=== PATIENT | female | born 2005 | race Caucasian/White ===

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

== ENCOUNTER 2023-02-02 06:32 | Emergency (ER) | payer OTHER ==
--- OUTSIDE RECORDS SUMMARY | 2023-02-02 06:36 | XMS REPORT | Continuity of Care Document ---
:2005 Author Organization [facility] t Address [address] [facility]. [address] [place] [address] Care Team Providers Name Role Phone LISSY FROST Primary Care Physician Unavailable MARY JANE HARDING Attending Clinician Unavailable PURVI BOB Attending Clinician Unavailable Purvi Baker Attending Clinician Doctor Unassigned, [place] Attending Clinician Unavailable Lissy Gibson Attending Clinician [phone] LISSY FROST Attending Clinician Unavailable Gris Al Attending Clinician Lab, Adc Fam Pob I Attending Clinician Unavailable Tae Reza Attending Clinician TAE KOVACS Attending Clinician Unavailable Visit, Ang-Rmp Nurse Attending Clinician Unavailable Payers Payer Name Policy Type Policy Number Effective Date Expiration Date S stoney AET[employer] 2 [id number] 2023 00:00:00 [employer] - [id number] 2020 2022 00:00:0 0 OUT OF STATE 00:00:00 [employer]ET[employer] CHOICE [id number] 2020 POS II 00:00:00 Problems Condition Condition Condition Status Onset Resolution Last Treating Co mments Source Name Details Category Date Date Treatment Clinician Date Nexplanon Nexplanon Disease Active Uni vers in place in place 03-27 ity of 00:00: [address] Vaginal Vaginal Disease Active Univers odor odor 5-04 ity of 00:00: [address] Irregular Irregular Disease Active Uni vers menstrual menstrual 3-24 ity of cycle cycle 00:00: [address] Overweight Overweight Disease Active U nivers (BMI (BMI 3-24 ity of 25.0-29.9) 25.0-29.9) 00:00: [address] Branch Encounter Encounter Disease Active Uni vers for for 1-30 ity of surveillan surveillan 00:00: xas ce of ce of Medical implantabl implantabl Br anch e e subdermal subdermal contracept contracept chris chris Allergies, Adverse Reactions, Alerts Allergy Allergy Status Severity Reaction(s) Onset Inactive Treating Comm ents Source Name Type Date Date Clinician NO KNOWN Drug Active Univers ALLERGIE Class ity of S [facility] Social History Social Habit Start Date Stop Date Quantity Comments Source Exposure to 2022-03-17 2022-03-27 Not sure Formerly [facility]-CoV-2 00:00:00 08:00:00 [facility] (event) Branch Alcohol intake 2022-03-27 2022-03-27 Current [facility] 00:00:00 00:00:00 non-drinker of [facility] alcohol Branch (finding) Tobacco use and 2018-09-11 2018-09-11 Never used Universit y of exposure 00:00:00 00:00:00 [facility] Sex Assigned At [birth year] Universit y of 00:00:00 00:00:00 [facility] Smoking Status Start Date Stop Date Source Never smoker [facility] Medications Ordered Filled Start Stop Current Ordering Indication Dosage Frequency Signature Comments Components Source Medication Medication Date Date Medication? Clinician (SIG) Name Name metroNIDAZO 2021- No [id number] 500mg Take 1 Univers LE 500 mg 03-29 tablet by ity of tablet 00:00: 04:59 mouth 2 [place] 00 :00 (two) Medical times [place] daily for 7 days. Immunizations Ordered Immunization Filled Immunization Date Status Commen ts Source Name Name HPV9 2019-12-23 Completed University 00:00:00 [facility] HPV 2019-02-22 Completed University of 00:00:00 [facility] HPV9 2019-02-22 Completed University of 00:00:00 [facility] HPV9 2018-12-23 Completed University of 00:00:00 [facility] HPV 2018-12-23 Completed University of 00:00:00 [facility] Meningococcal 2015-06-26 Completed University of Vaccine 00:00:00 [facility] TDAP 2015-06-26 Completed University of 00:00:00 [facility] DTAP 2008-02-23 Completed University of 00:00:00 [facility] HEPATITIS A 2008-02-23 Completed University of 00:00:00 [facility] MMR 2008-02-23 Completed University of 00:00:00 [facility] Polio (IPV/OPV) 2008-02-23 Completed Universit y of 00:00:00 [facility] Varicella 2008-02-23 Completed University of (varivax)(chicken 00:00:00 [place] M edical pox) Branch HEPATITIS A 2005-11-20 Completed University of 00:00:00 [facility] Varicella 2005-11-20 Completed University of (varivax)(chicken 00:00:00 [place] M edical pox) Branch DTAP 2004-11-27 Completed University of 00:00:00 [facility] HIB 4 Dose Schedule 2004-11-27 Completed Unive rsity of 00:00:00 [facility] Influenza Virus 2004-11-27 Completed Universit y of Vaccine 00:00:00 [facility] MMR 2004-11-27 Completed University of 00:00:00 [facility] Pneumococcal 13 2004-11-27 Completed Universit y of Conjugate, PCV13 00:00:00 [facility] dical (Prevnar 13) Branch Polio (IPV/OPV) 2004-11-27 Completed Universit y of 00:00:00 [facility] DTAP 2004-04-16 Completed University of 00:00:00 [facility] HIB 4 Dose Schedule 2004-04-16 Completed Unive rsity of 00:00:00 [facility] Hep B, Adol or Pedi 2004-04-16 Completed Unive rsity of Dosage 00:00:00 [facility] Pneumococcal 13 2004-04-16 Completed Universit y of Conjugate, PCV13 00:00:00 [place] Me dical (Prevnar 13) Branch DTAP 2004-02-10 Completed University of 00:00:00 [facility] HIB 4 Dose Schedule 2004-02-10 Completed Unive rsity of 00:00:00 [facility] Pneumococcal 7 2004-02-10 Completed University of Conjugate, PCV7 00:00:00 [place] Med ical (Prevnar7) Branch Polio (IPV/OPV) 2004-02-10 Completed Universit y of 00:00:00 [facility] Pneumococcal 13 2004-02-10 Completed Universit y of Conjugate, PCV13 00:00:00 [place] Me dical (Prevnar 13) Branch DTAP 2003 Completed University of 00:00:00 [facility] HIB 4 Dose Schedule 2003 Completed Unive rsity of 00:00:00 [facility] Hep B, Adol or Pedi 2003 Completed Unive rsity of Dosage 00:00:00 [facility] Polio (IPV/OPV) 2003 Completed Universit y of 00:00:00 [facility] Hep B, Adol or Pedi 2003 Completed Unive rsity of Dosage 00:00:00 [facility] Procedures This patient has no known procedures. Encounters Start End Encounter Admission Attending Care Care Encounter Source Date/Time Date/Time Type Type Clinicians Facility Department ID 2023-01-23 2023-01-23 Outpatient JACQUE HARDING [id number] Jacque 00:00:00 00:00:00 MARY JANE cannon 2022-09-04 2022-09-04 Outpatient Theodore BOB [facility] [id number] Univers 09:45:00 09:45:00 PURVI martinez [facility] 2022-03-29 2022-03-29 Telephone Lisbeth [facility] [id number] [facility] 00:00:00 00:00:00 Purvi Jaimes [employer] [id number] ity [facility] [id number] Parveen as MATERNAL [phone] Med ical & CHILD [address] [place] [address] 2022-03-27 2022-03-27 Outpatient R LISBETH [facility] [id number] Univers 07:45:00 08:26:51 PURVI staley o michelle [facility] 2022-03-27 2022-03-27 [facility] [id number] Univers 07:45:00 08:26:51 Visit Purvi Jaimes [employer] [id number] [facility] [id number] Parveen as MATERNAL [phone] [facility] [address] [place] [address] 2022-03-27 2022-03-27 Outpatient [address] [facility] [id number] Univers 07:45:00 08:26:51 PURVI staley o f [facility] 2022-03-27 2022-03-27 Orders Doctor SOL[place] [id number] Univers 00:00:00 00:00:00 Only Unassigned, NICOLE 350.1.13.10 ity of [place] [facility] 4.2.7.2.686 Parveen as [phone] [address] 2022-03-27 2022-03-27 [facility] [id number] Univers 00:00:00 00:00:00 (Out) Purvi Jaimes [employer] [id number] [facility] 4.2.7.2.686 Parveen as MATERNAL [phone] [facility] & [address] 2021-12-13 2021-12-13 Outpatient [address] [facility] [id number] Univers 08:45:00 08:45:00 PURVI staley o [facility] 2021-09-12 2021-09-12 Telephone [facility] [id number] Univers 00:00:00 00:00:00 Lissy C [employer] [id number] [facility] 4.2.7.2.686 Parveen as MATERNAL [phone] [facility] & [address] 2021-07-10 2021-07-10 Outpatient Theodore [facility] [id number] Univers 17:30:00 17:30:00 PURVI staley o michelle [facility] 2021-07-06 2021-07-06 Telephone [facility] [id number] Univers 00:00:00 00:00:00 Lissy C [employer] [id number] ity of REGIONAL 4.2.7.2.686 Parveen as MATERNAL [phone] [facility] & [address] 2021-06-29 2021-06-29 Telephone [facility] 1.2.840.114 [id number] Univers 00:00:00 00:00:00 Lissy C [employer] [id number] ity of REGIONAL 4.2.7.2.686 Parveen as MATERNAL [id number] [address] 2021-04-19 2021-04-19 Outpatient R [facility] [id number] Univers 13:15:00 13:15:00 ity of [facility] 2021-04-05 2021-04-05 Telephone [facility] [id number] Univers 00:00:00 00:00:00 Purvi R [employer] 350.1.13.10 ity of REGIONAL 4.2.7.2.686 Parveen as MATERNAL [id number] [address] 2021-04-04 2021-04-04 Outpatient R [facility] [id number] Univers 15:45:00 15:45:00 LISSY ity o f [facility] 2021-03-09 2021-03-09 Orders Doctor JEREZ 1.2.840.114 [id number] Univers 00:00:00 00:00:00 Only Unassigned, NICOLE 350.1.13.10 ity of [place] [facility] 4.2.7.2.686 Parveen as [id number] [address] 2021-03-09 2021-03-09 Orders Doctor JEREZ 1.2.840.114 [id number] 00:00:00 00:00:00 Only Unassigned, NICOLE 350.1.13.10 [place] [facility] 4.2.7.2.686 [id number] [facility] 2021-02-28 2021-02-28 Office [facility] 1.2.840.114 [id number] Univers 08:17:07 09:05:09 Visit Aranzanda R [employer] 350.1.13.10 ity of REGIONAL 4.2.7.2.686 Parveen as MATERNAL [phone] [facility] ical & CHILD [address] [place] [address] 2021-02-28 2021-02-28 Office [facility] 1.2.840.114 [id number] 08:17:07 09:05:09 Visit Aranzanda R [employer] 350.1.13.10 REGIONAL 4.2.7.2.686 MATERNAL [id number] & CHILD [address] [place] [address] 2021-02-28 2021-02-28 Outpatient [facility] [id number] Univers 08:15:00 08:15:00 PURVI singleton [facility] 2021-02-28 2021-02-28 Orders Doctor SOLITARIO 1.2.840.114 [id number] Univers 00:00:00 00:00:00 Only Unassigned, NICOLE 350.1.13.10 ity of [place] [facility] 4.2.7.2.686 Parveen as [id number] [address] 2021-02-28 2021-02-28 Orders Doctor SOLITARIO 1.2.840.114 [id number] 00:00:00 00:00:00 Only Unassigned, NICOLE 350.1.13.10 [place] [facility] 4.2.7.2.686 [id number] [facility] 2021-02-14 2021-02-14 Office [facility] 1.2.840.114 [id number] Univers 14:34:45 15:51:36 Visit Aranzanda R [employer] 350.1.13.10 ity of REGIONAL 4.2.7.2.686 Parveen as MATERNAL [phone] [facility] ical & CHILD [address] [place] [address] 2021-02-14 2021-02-14 Outpatient Theodore [facility] [id number] Univers 14:15:00 14:15:00 PURVI martinez [facility] 2021-02-14 2021-02-14 Orders Doctor SOLITARIO Quintana.2.840.114 [id number] Univers 00:00:00 00:00:00 Only Unassigned, NICOLE 350.1.13.10 ity of [place] [address]686 Parveen as [phone] [address] 2021-01-25 2021-01-25 Telephone [facility] 1.2.840.114 [id number] Univers 00:00:00 00:00:00 Lissy C [employer] 350.1.13.10 ity of [address]686 Parveen as MATERNAL [phone] [facility] & CHILD [address] [place] [address] 2020-08-30 2020-08-30 Office [facility] [id number] Univers 08:07:36 08:46:48 Visit Lissy C [employer] 350.1.13.10 ity of [place] [id number] Parveen as MATERNAL [phone] [facility] & CHILD [address] [place] [address] 2020-08-30 2020-08-30 Outpatient R AKINSIPE, [facility] [id number] Univers 08:15:00 08:15:00 LISSY ity o f [facility] 2020-08-23 2020-08-23 Outpatient R AKINSIPE, [facility] [id number] Univers 09:45:00 09:45:00 LISSY ity o f [facility] 2020-08-23 2020-08-23 Outpatient R AKINSIPE, [facility] [id number] Univers 09:45:00 09:45:00 LISSY ity o [facility] 2020-07-09 2020-07-09 Refill [facility] [id number] Univers 00:00:00 00:00:00 Lissy C [employer] 350.1.13.10 ity of [place] [id number] Parveen as MATERNAL [phone] [facility] & [facility] [address] [place] [address] 2020-06-26 2020-06-26 Orders Doctor JEREZ 1.2.840.114 [id number] Univers 00:00:00 00:00:00 Only Unassigned, NICOLE 350.1.13.10 ity of [place] [facility] 4.2.7.2.686 Parveen as [id number] [address] 2020-06-25 2020-06-25 [facility]phone [facility] [id number] Univers 00:00:00 00:00:00 Gris [facility] 350.1.13.10 it y of [place] 4.2.7.2.686 Parveen as Professio [phone] Il dical nal [address] [place] [address] Office Building One 2020-06-24 2020-06-24 Laboratory Lab, Adc Fam Pob I [facility] 1.2. [id number] Univers 13:51:37 14:11:37 Only Ebrahim, Tae [facility] 350.1.13.10 ity of [place] 4.2.7.2.686 Parveen as Professio [phone] Il dical nal [address] [place] [address] Office [facility] 2020-06-24 2020-06-24 Outpatient R EBLISSETTEM, [facility] [id number] Univers 14:00:00 14:00:00 RANIA ity [facility] 2020-06-07 2020-06-07 Outpatient R [facility] [id number] Univers 13:30:00 13:30:00 ity [facility] 2020-05-23 2020-05-30 Office [facility] [id number] Univers 08:24:40 16:10:49 Visit Lissy Rick [employer] 350.1.13.10 ity [facility] 4.2.7.2.686 Parveen as MATERNAL [id number] Med ical & CHILD [address] [place] [address] 2020-05-23 2020-05-23 Outpatient R MARGOT, [facility] [id number] Univers 08:15:00 08:15:00 LISSY martinez [facility] 2020-05-23 2020-05-23 Outpatient R AKINWILLIAM, [facility] [id number] Univers 08:15:00 08:15:00 LISSY martinez [facility] 2020-05-03 2020-05-03 Telephone [facility] 1.2.840.114 [id number] Univers 00:00:00 00:00:00 Lissy C [employer] 350.1.13.[address] [facility] 4.2.7.2.686 Parveen as MATERNAL [id number] [facility] & CHILD [address] [place] [address] 2020-03-16 2020-03-16 Outpatient R [facility] [id number] Univers 16:00:00 16:00:00 ity of [facility] 2020-03-15 2020-03-15 Nurse Visit, Lai Nurse [facility] 1.2 .840.114 [id number] Univers 13:31:32 16:14:24 Visit Lissy Frost [employer] 350.1.13. [address] [facility] 4.2.7.2.686 Parveen as MATERNAL [id number] [facility] & [address] 2020-03-15 2020-03-15 Outpatient R [facility] [id number] Univers 13:30:00 13:30:00 ity of [facility] 2020-01-03 2020-01-03 Telephone Margot [facility] 1.2.840.114 [id number] Univers 00:00:00 00:00:00 Lissy Prabhjot [employer] 350.1.13.[address] [facility] 4.2.7.2.686 Parveen as MATERNAL [phone] [address] 2019-12-08 2019-12-08 Nurse Visit, Lai Nurse [facility] 1.2 .840.114 [id number] Univers 08:30:13 08:59:06 Visit Lissy Frost [employer] 350.1.13. [address] [facility] 4.2.7.2.686 Parveen as MATERNAL [phone] [facility] & CHILD [address] [place] [address] 2019-12-08 2019-12-08 Orders Doctor JEREZ 1.2.840.114 [id number] Univers 00:00:00 00:00:00 Only Unassigned, NICOLE 350.1.13.10 ity of [place] [facility] 4.2.7.2.686 Parveen as [phone] [address] 2019-08-02 2019-08-03 Nurse Visit, Ang-Rmchp Nurse [facility] 1.2 .840.114 [id number] [facility] 16:19:35 16:01:32 Visit Lissy Frost [employer] [facility].13. [facility].7.2.686 Parveen as MATERNAL [phone] Med ical & CHILD [facility] Results This patient has no known results.
[2023-02-02] MEDS ORDERED: NA CHLORIDE 0.9% 1,000 ML ONE (07:23)
[2023-02-02] MEDS ORDERED: ONDANSETRON 4 MG/2 ML VIAL ONE (07:23)
[2023-02-02 07:40] LABS: Hematocrit 44.1 % (36.0-45.0); Lymphocytes % 22.6 % (15.3-44.8); MCV 83.5 fL (80-100); MPV 8.6 fL (7.6-11.3); RBC Red Blood Cell Count 5.28 M/uL (3.86-4.86)
[2023-02-02] MEDS ORDERED: ACETAMINOPHEN 500 MG TAB ONE (07:47)
[2023-02-02 07:58] LABS: Albumin 3.8 g/dL (3.4-5.0); Bilirubin Total 0.5 mg/dL (0.2-1.0); Potassium 3.6 mmol/L (3.5-5.1); Protein, Total 7.4 g/dL (6.4-8.2)
[2023-02-02 08:54] LABS: Urine Blood Negative (Negative); Urine Glucose Negative (Negative); Urine Protein Negative (Negative); Urine Specific Gravity 1.025 (1.005-1.030)
[2023-02-02 09:03] LABS: Urine Bacteria 20-50 /HPF (<20); Urine Mucus Slight /HPF (None Seen); Urine RBC <5 /HPF (None Seen)
--- NOTE | 2023-02-02 09:40 | RAD REPORT ---
EXAM DESCRIPTION: US - Transvaginal Study Probe - 02/02/2023 8:40 am CLINICAL HISTORY: ABD PAIN COMPARISON: Transvaginal Study Probe dated 04/04/2021 FINDINGS: A single gestational sac is seen within the uterus. The shape of the sac is within normal limits for gestational age. Within the sac is a single pole with crown-rump length of 2 mm, cor relating to estimated gestational age of 6 weeks 0 days. Estimated date of delivery is 09/28/2023. Heart rate is 117 BPM. The placenta is not yet developed due to early gestational age. The maternal adnexa and ovaries are within normal limits. Normal Doppler blood flow was demonstrated to both ovaries. IMPRESSION: Single live early intrauterine gestation with estimated gestational age of 6 weeks 0 day s, MABEL 09/28/2023. No unusual or unexpected finding.
[2023-02-02 11:01] VITALS: TEMP 98.4
[2023-02-02 11:02] VITALS: O2SAT 99
[2023-02-02 11:03] VITALS: BP 97/65
--- NOTE | 2023-02-14 17:19 | ER ---
Nurse's Notes [facility] Name: Mat Mendez Age: 17 yrs Sex: Female : 2005 Arrival Date: 02/02/2023 Time: 06:39 Bed 6 Private MD: Diagnosis: UTI/ Urinary tract infection, site not specified Presentation: 02/02 07:19 Chief complaint: Patient states: she is having lower abdominal pain that radiates to [facility] lower back for about 2 weeks. She was diagnosed with a UTI 2 wks ago, given abx, pain went away for 3 days but it is back. Pt is "6 weeks ". . Coronavirus screen: Vaccine status: Patient reports being unvaccinated. Ebola Screen: No symptoms or risks identified at this time. Initial Sepsis Screen: Does the patient meet any 2 criteria? No. Patient's initial sepsis screen is negative. Does the patient have a suspected source of infection? No. Patient's initial sepsis screen is negative. Risk Assessment: Do you want to hurt yourself or someone else? Patient reports no desire to harm self or others. Onset of symptoms was January 2023. Transition of care: patient was not received from another setting of care. 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 - Social history:: Smoking status: Patient denies any tobacco usage or history of. Screenin:20 [facility] ED Fall Risk Assessment (Adult) History of falling in the last 3 months, [facility] including since admission No falls in past 3 months (0 pts) Confusion or Disorientation No (0 pts) Intoxicated or Sedated No (0 pts) Impaired Gait No (0 pts) Mobility Assist Device Used No (0 pt) Altered Elimination No (0 pt) Score/Fall Risk Level 0 - 2 = Low Risk. Abuse screen: Denies threats or abuse. Denies injuries from another. Nutritional screening: No deficits noted. Tuberculosis screening: No symptoms or risk factors identified. Assessment: 07:20 General: Appears in no apparent distress. comfortable, Behavior is calm, cooperative, nj1 appropriate for age. Pain: Complains of pain in Lower abdominal Pain radiates to Lower back Pain currently is 2 out of 10 on a pain scale. Quality of pain is described as crampy, Pain began 2 weeeks ago. Neuro: No deficits noted. Level of Consciousness is awake, alert, obeys commands, Oriented to person, place, time, situation. Cardiovascular: No deficits noted. Patient's skin is warm and dry. Respiratory: No deficits noted. Airway is patent Respiratory effort is even, unlabored, Respiratory pattern is regular. GI: Reports lower abdominal pain, nausea. 08:16 Reassessment: US tech at bedside. Monitoring continues. nj1 08:45 Reassessment: Patient appears in no apparent distress at this time. Patient and/or nj1 family updated on plan of care and expected duration. Pain level reassessed. Patient is alert, oriented x 3, equal unlabored respirations, skin warm/dry/pink. Patient states symptoms have improved. Denies nausea.. 09:40 Reassessment: Patient appears in no apparent distress at this time. Appears to be nj1 sleeping. No needs voiced at this time. Significant other at bedside.. Vital Signs: 07:19 BP 107 / 74; Pulse 81; Resp 18; Temp 98.4(O); Pulse Ox 100% on R/A; Weight 72.57 kg; nj1 Height 5 ft. 5 in. ; Pain 2/10; 08:45 BP 97 / 67; Pulse 81; Resp 18; Pulse Ox 99% ; ko1 08:45 Pain 2/10; nj1 09:28 BP 97 / 65; Pulse 65; Resp 18; Pulse Ox 99% on R/A; ld1 07:19 Body Mass Index 26.63 (72.57 kg, 165.1 cm) nj1 07:19 Pain Scale: Adult nj1 08:45 Pain Scale: Adult nj1 ED Course: 06:39 Patient arrived in ED. ja2 06:51 Tom Priest MD is Attending Physician. edison 07:01 Attending Physician role handed off by Tom Priest MD rt 07:01 Alfredo Parrish MD is Attending Physician. rt 07:15 Dora Watson, RN is Primary Nurse. ko1 07:19 Arm band placed on. nj1 07:19 Bed in low position. Call light in reach. Pt declined warm blanket. nj1 07:35 Inserted saline lock: 22 gauge in right forearm, using aseptic technique. nj1 07:41 Triage completed. nj1 07:41 CBC with Diff Sent. ko1 07:41 CMP Sent. ko1 07:41 Lipase Sent. ko1 08:42 Transvaginal Study Probe In Process Unspecified. EDMS 08:46 Urine Microscopic Only Sent. ko1 10:28 No provider procedures requiring assistance completed. IV discontinued, intact, ko1 bleeding controlled, No redness/swelling at site. Pressure dressing applied. Administered Medications: 07:40 Drug: NS 0.9% IV 1000 ml Route: IV; Rate: 1 bolus; Site: right forearm; ko1 07:41 Drug: Ondansetron IVP 4 mg Route: IVP; Site: right forearm; ko1 07:44 Drug: Acetaminophen PO 1000 mg Route: PO; ko1 Medication: 10:28 VIS not applicable for this client. ko1 Outcome: 10:02 Discharge ordered by . rt 10:28 Discharged to home ambulatory, with family. ko1 10:28 Condition: stable 10:28 Discharge instructions given to patient, family, Instructed on discharge instructions, follow up and referral plans. medication usage, Demonstrated understanding of instructions, follow-up care, medications, Prescriptions given X 1. 10:35 Patient left the ED. ko1 Signatures: Dispatcher [employer] [facility] Tom Priest MD MD cha Dibbern, Lauren, RN RN ld1 eNha Brito Dora Watson, RN RN ko1 Alfredo Parrish MD MD rt Seema Hussein RN RN nj1 Corrections: (The following items were deleted from the chart) 08:13 07:19 PMHx: scoliosis; nj1 nj1
--- NOTE | 2023-02-14 17:19 | EDPHYS ---
Physician Documentation [facility] Name: Mat Mendez Age: 17 yrs Sex: Female : 2005 Arrival Date: 02/02/2023 Time: 06:39 Bed 6 Private MD: ED Physician Alfredo Parrish HPI: 02/02 07:33 This 17 yrs old Female presents to ER via Unassigned with complaints of rt Abdominal Pain, Low Back Pain. 07:33 Patient was reportedly 6 weeks presents to the ED with about 2 weeks of an rt intermittent lower abdominal pain which she states radiates to the lower back. Patient states that she was recently treated for a UTI and told that she had a cyst. Patient finished a course of cephalexin. States that the pain initially improved but worsened today. Reports nausea. Denies other acute complaints at this time. Symptoms are moderate in severity, no other aggravating alleviating factors.. USED [employer]: 07:19 1, LMP 12/17/2022, Verified, EDC 09/23/2023, Gestational age from LMP: nj1 6 weeks 5 days Historical: - Allergies: 07:19 No Known Allergies; nj1 - Home Meds: 07:19 None [Active]; nj1 - Immunization history:: Client reports having NOT received the Covid vaccine. - Social history:: Smoking status: Patient denies any tobacco usage or history of. ROS: 07:34 Constitutional: Negative for fever, chills, and weight loss, Cardiovascular: Negative rt for chest pain, palpitations, and edema, MS/Extremity: Negative for injury and deformity, Skin: Negative for injury, rash, and discoloration, Neuro: Negative for headache, weakness, numbness, tingling, and seizure, Psych: Negative for depression, anxiety, suicide ideation, homicidal ideation, and hallucinations. 07:34 Abdomen/GI: Positive for abdominal pain, nausea, Negative for vomiting. 07:34 Back: Positive for pain at rest, Negative for injury or acute deformity. Exam: 07:34 Constitutional: This is a well developed, well nourished patient who is awake, alert, rt and in no acute distress. Head/Face: Normocephalic, atraumatic. Chest/axilla: Normal chest wall appearance and motion. Nontender with no deformity. No lesions are appreciated. Cardiovascular: Regular rate and rhythm with a normal S1 and S2. No gallops, murmurs, or rubs. Normal PMI, no JVD. No pulse deficits. Respiratory: Lungs have equal breath sounds bilaterally, clear to auscultation and percussion. No rales, rhonchi or wheezes noted. No increased work of breathing, no retractions or nasal flaring. Abdomen/GI: Soft, non-tender, with normal bowel sounds. No distension or tympany. No guarding or rebound. No evidence of tenderness throughout. Skin: Warm, dry with normal turgor. Normal color with no rashes, no lesions, and no evidence of cellulitis. MS/ Extremity: Pulses equal, no cyanosis. Neurovascular intact. Full, normal range of motion. Neuro: Awake and alert, GCS 15, oriented to person, place, time, and situation. Cranial nerves II-XII grossly intact. Motor strength 5/5 in all extremities. Sensory grossly intact. Cerebellar exam normal. Normal gait. Psych: Awake, alert, with orientation to person, place and time. Behavior, mood, and affect are within normal limits. Vital Signs: 07:19 BP 107 / 74; Pulse 81; Resp 18; Temp 98.4(O); Pulse Ox 100% on R/A; Weight 72.57 kg; nj1 Height 5 ft. 5 in. ; Pain 2/10; 08:45 BP 97 / 67; Pulse 81; Resp 18; Pulse Ox 99% ; ko1 08:45 Pain 2/10; nj1 09:28 BP 97 / 65; Pulse 65; Resp 18; Pulse Ox 99% on R/A; ld1 07:19 Body Mass Index 26.63 (72.57 kg, 165.1 cm) nj1 07:19 Pain Scale: Adult nj1 08:45 Pain Scale: Adult nj1 MDM: 06:51 Patient medically screened. edison 10:04 Differential diagnosis: UTI, pyelonephritis, kidney stone, ectopic . Data rt reviewed: vital signs, nurses notes, lab test result(s), radiologic studies. I considered the following discharge prescriptions or medication management in the emergency department Medications were administered in the Emergency Department. See MAR. Test considered but Not performed: CT: Benign abdominal examination, no focal right lower quadrant tenderness to suggest acute appendicitis. CT scan not indicated.. Counseling: I had a detailed discussion with the patient and/or guardian regarding: the historical points, exam findings, and any diagnostic results supporting the discharge/admit diagnosis, lab results, the need for outpatient follow up. ED course: Patient is a at 6 weeks who complains of recurrence of abdominal pain. She has a benign abdominal examination, was recently treated for UTI, is found a bacteria in the urine. Will change classes, send for urine culture. She did complain of a low back pain, ever, she has no costovertebral angle tenderness, without fever, lab abnormalities, very low suspicion for pyelonephritis, this was discussed with the patient. She is to follow-up as an outpatient.. 02/02 06:51 Order name: CBC with Diff; Complete Time: 08:27 [facility] 02/02 06:51 Order name: CMP; Complete Time: 08:27 [facility] 02/02 06:51 Order name: Lipase; Complete Time: 08:27 [facility] 02/02 06:51 Order name: Urine Microscopic Only; Complete Time: 09:08 [facility] 02/02 08:54 Order name: Urine Dipstick-Ancillary; Complete Time: 09:08 [facility] 02/02 10:06 Order name: Urine Culture rt 02/02 08:28 Order name: Transvaginal Study Probe; Complete Time: 09:54 [facility] 02/02 06:51 Order name: IV Saline Lock; Complete Time: 07:40 [facility] 02/02 06:52 Order name: Labs collected and sent; Complete Time: 07:40 [facility] 02/02 06:52 Order name: Urine Dipstick-Ancillary (obtain specimen); Complete Time: 08:46 [facility] Administered Medications: 07:40 Drug: NS 0.9% IV 1000 ml Route: IV; Rate: 1 bolus; Site: right forearm; ko1 07:41 Drug: Ondansetron IVP 4 mg Route: IVP; Site: right forearm; ko1 07:44 Drug: Acetaminophen PO 1000 mg Route: PO; ko1 Disposition Summary: 02/02/23 10:02 Discharge Ordered Location: Home rt Problem: an ongoing problem rt Symptoms: have improved rt Condition: Stable rt Diagnosis - UTI/ Urinary tract infection, site not specified rt Followup: rt - With: Private Physician - When: 2 - 3 days - Reason: Discharge Instructions: - Discharge Summary Sheet rt - Urinary Tract Infection, Adult rt Forms: - Medication Reconciliation Form rt - Thank You Letter rt - Antibiotic Education rt - Prescription Opioid Use rt Prescriptions: - Macrobid 100 mg Oral Capsule - take 1 capsule by ORAL route every 12 hours for 7 days; 14 capsule; Refills: 0, rt Product Selection Permitted Signatures: Dispatcher [employer] EDMS Tom Priest MD MD cha Oliver, Kathy, RN RN ko1 Alfredo Parrish MD MD rt Jaco, Norma RN RN nj1 Corrections: (The following items were deleted from the chart) 07:24 06:51 Urine Test ordered. edison rt 08:13 07:19 PMHx: scoliosis; nj1 nj1 08:28 07:25 [facility] [employer]+US.RAD.BRZ ordered. EDOR EDMS
== END 2023-02-02 10:35 | disposition home or self-care (01) ==
LOC: ER 06:32
DX: O23.41 Unspecified infection of urinary tract in pregnancy, first trimester (principal); Z3A.01 Less than 8 weeks gestation of pregnancy
CPT/HCPCS: 87088; 85025; 87086; 36415; 83690; 80053; 76830; 96374; 99284; J2405; J7030; 81003; 81015

== ENCOUNTER 2023-04-22 08:29 | Emergency (ER) | payer OTHER ==
--- OUTSIDE RECORDS SUMMARY | 2023-04-22 08:31 | XMS REPORT | Continuity of Care Document ---
:2005 Author Organization [facility] t Address [address] [place] [address] [place] [id number] Care Team Providers Name Role Phone LISSY FROST Primary Care Physician Unavailable PURVI BOB Attending Clinician Unavailable Purvi Baker Attending Clinician Doctor Unassigned, [place] Attending Clinician Unavailable Lissy Gibson Attending Clinician [phone] LISSY FROST Attending Clinician Unavailable Green Gris BETANCOURT Attending Clinician Lab, Adc Fam Pob I Attending Clinician Unavailable Tae Reza Attending Clinician TAE YUNG Attending Clinician Unavailable Visit, Ang-Rmchp Nurse Attending Clinician Unavailable Payers Payer Name Policy Type Policy Number Effective Date Expiration Date S surendrapriyank BCBS [facility] - [id number] 2020 2022 00:00:0 0 OUT OF STATE 00:00:00 [employer] CHOICE [id number] 2020 POS II 00:00:00 Problems Condition Condition Condition Status Onset Resolution Last Treating Co mments Source Name Details Category Date Date Treatment Clinician Date Nexplanon Nexplanon Disease Active Uni vers in place in place 03-27 ity of 00:00: [address] Vaginal Vaginal Disease Active Univers odor odor 03-27 ity of 00:00: [place] 00 [facility] Irregular Irregular Disease Active Uni vers menstrual menstrual 3-24 ity of cycle cycle 00:00: [place] [id number] Medical Branch Overweight Overweight Disease Active U nivers (BMI (BMI 3-24 ity of 25.0-29.9) 25.0-29.9[place] [facility] [place] Encounter Encounter Disease Active Uni vers for for 1-30 ity of surveillan surveillan 00:00: [place] ce of ce of 00 Medical implantabl implantabl Br anch e e subdermal subdermal contracept contracept chris chris Allergies, Adverse Reactions, Alerts Allergy Allergy Status Severity Reaction(s) Onset Inactive Treating Comm ents Source Name Type Date Date Clinician NO KNOWN Drug Active Univers ALLERGIE Class ity of S [facility] Social History Social Habit Start Date Stop Date Quantity Comments Source Exposure to 2022-03-17 2022-03-27 Not sure [facility]-CoV-2 00:00:00 08:00:00 [facility] (event) Branch Alcohol intake 2022-03-27 2022-03-27 Current [facility] 00:00:00 00:00:00 non-drinker of [facility] alcohol Branch (finding) Tobacco use and 2018-09-11 2018-09-11 Never used Universit y of exposure 00:00:00 00:00:00 [facility] Sex Assigned At [birth year] Universit y of 00:00:00 00:00:00 [facility] Smoking Status Start Date Stop Date Source Never smoker [facility] Branch Medications Ordered Filled Start Stop Current Ordering Indication Dosage Frequency Signature Comments Components Source Medication Medication Date Date Medication? Clinician (SIG) Name Name metroNIDAZO 2021- No [id number] 500mg Take 1 Univers LE 500 mg 03-29 tablet by ity of tablet 00:00: 04:59 mouth 2 [place] 00 :00 (two) Medical times Branch daily for 7 days. Immunizations Ordered Immunization Filled Immunization Date Status Commen ts Source Name Name HPV9 2019-12-23 Completed [facility] 00:00:00 [facility] HPV9 2019-02-22 Completed [facility] 00:00:00 [facility] HPV 2019-02-22 Completed [facility] 00:00:00 [facility] HPV9 2018-12-23 Completed University of 00:00:00 [facility] HPV 2018-12-23 Completed University of 00:00:00 [facility] Meningococcal 2015-06-26 Completed University of Vaccine 00:00:00 [facility] TDAP 2015-06-26 Completed University of 00:00:00 [facility] DTAP 2008-02-23 Completed University of 00:00:00 [facility] HEPATITIS A 2008-02-23 Completed University of 00:00:00 [facility] MMR 2008-02-23 Completed University of 00:00:00 [facility] Polio (IPV/OPV) 2008-02-23 Completed Universit y of 00:00:00 [facility] Varicella 2008-02-23 Completed University of (varivax)(chicken 00:00:00 [place] [facility] pox) Branch HEPATITIS A 2005-11-20 Completed University of 00:00:00 [facility] Varicella 2005-11-20 Completed University of (varivax)(chicken 00:00:00 [place] M edical pox) Branch DTAP 2004-11-27 Completed University of 00:00:00 [facility] HIB 4 Dose Schedule 2004-11-27 Completed Unive rsity of 00:00:00 [facility] Influenza Virus 2004-11-27 Completed Universit y of Vaccine 00:00:00 [facility] MMR 2004-11-27 Completed University of 00:00:00 [facility] Pneumococcal 13 2004-11-27 Completed Universit y of Conjugate, PCV13 00:00:00 [facility] dical (Prevnar 13) [place] Polio (IPV/OPV) 2004-11-27 Completed Universit y of 00:00:00 [facility] DTAP 2004-04-16 Completed University of 00:00:00 [facility] HIB 4 Dose Schedule 2004-04-16 Completed Unive rsity of 00:00:00 [facility] Hep B, Adol or Pedi 2004-04-16 Completed Unive rsity of Dosage 00:00:00 [facility] Pneumococcal 13 2004-04-16 Completed Universit y of Conjugate, PCV13 00:00:00 [facility] dical (Prevnar 13) Branch DTAP 2004-02-10 Completed University of 00:00:00 [facility] HIB 4 Dose Schedule 2004-02-10 Completed Unive rsity of 00:00:00 [facility] Pneumococcal 7 2004-02-10 Completed University of Conjugate, PCV7 00:00:00 [place] Med ical (Prevnar7) Branch Polio (IPV/OPV) 2004-02-10 Completed Universit y of 00:00:00 [facility] Pneumococcal 13 2004-02-10 Completed Universit y of Conjugate, PCV13 00:00:00 [place] Me dical (Prevnar 13) Branch DTAP 2003 Completed University of 00:00:00 [facility] HIB 4 Dose Schedule 2003 Completed Unive rsity of 00:00:00 [facility] Hep B, Adol or Pedi 2003 Completed Unive rsity of Dosage 00:00:00 [facility] Polio (IPV/OPV) 2003 Completed Universit y of 00:00:00 [facility] Hep B, Adol or Pedi 2003 Completed Unive rsity of Dosage 00:00:00 [facility] Procedures This patient has no known procedures. Encounters Start End Encounter Admission Attending Care Care Encounter Source Date/Time Date/Time Type Type Clinicians Facility Department ID 2022-09-04 2022-09-04 [facility] [id number] Univers 09:45:00 09:45:00 PURVI staley o f [facility] 2022-03-29 2022-03-29 Telephone [facility] [id number] Univers 00:00:00 00:00:00 Purvi Jaimes FORMS ANALYSIS MANAGER [id number] [facility] [id number] [place] as MATERNAL [phone] Med ical & CHILD 107 [facility] [place], [place] 2022-03-27 2022-03-27 [facility] [id number] Univers 07:45:00 08:26:51 PURVI staley o f [facility] 2022-03-27 2022-03-27 Office [facility] [id number] Univers 07:45:00 08:26:51 Visit Aranzanancy Jaimes FORMS ANALYSIS MANAGER [id number] [facility] [id number] [place] as MATERNAL [phone] Med ical & CHILD 107 [facility] [place] [place] 2022-03-27 2022-03-27 [facility] [id number] Univers 07:45:00 08:26:51 TYSHAWNGUMARODebbie staley o michelle [facility] 2022-03-27 2022-03-27 Orders Doctor SOLITARIO 1.2.840.114 [id number] Univers 00:00:00 00:00:00 Only Unassigned, NICOLE 350.1.13.10 [facility] 4.2.7.2.686 [place] as [phone] [address] 2022-03-27 2022-03-27 [facility] 1.2.840.114 [id number] Univers 00:00:00 00:00:00 (Out) Purvi Jaimes FORMS ANALYSIS MANAGER [id number] [facility] 4.2.7.2.686 [place] as MATERNAL [phone] Med ical & CHILD [address] [place] [address] 2021-12-13 2021-12-13 [facility] [id number] Univers 08:45:00 08:45:00 ARANZAANGELES rebeka o michelle [facility] 2021-09-12 2021-09-12 Telephone [facility] 1.2.840.114 [id number] Univers 00:00:00 00:00:00 Lissy Rick FORMS ANALYSIS MANAGER 350.1.13.[address] [facility] 4.2.7.2.686 [place] as MATERNAL [phone] [facility] ical & CHILD [address] [place] [address] 2021-07-10 2021-07-10 [facility] [id number] Univers 17:30:00 17:30:00 PURVI singleton michelle [facility] 2021-07-06 2021-07-06 Telephone [facility] 1.2.840.114 [id number] Univers 00:00:00 00:00:00 Lissy Rick FORMS ANALYSIS MANAGER 350.1.13.[address] [facility] 4.2.7.2.686 [place] as MATERNAL [phone] Med ical & CHILD [address] [place] [address] 2021-06-29 2021-06-29 [facility] 1.2.840.114 [id number] Univers 00:00:00 00:00:00 Lissy Rick FORMS ANALYSIS MANAGER 350.1.13.[address] [facility] 4.2.7.2.686 [place] as MATERNAL [phone] [facility] ical & CHILD [address] [place] [address] 2021-04-19 2021-04-19 Outpatient R [facility] [id number] Univers 13:15:00 13:15:00 ity of [facility] 2021-04-05 2021-04-05 Telephone [facility] [id number] Univers 00:00:00 00:00:00 Purvi Jaimes FORMS ANALYSIS MANAGER 350.1.13.[address] [facility] 4.2.7.2.686 [place] as MATERNAL [phone] [facility] & CHILD [address] [place] [address] 2021-04-04 2021-04-04 [facility] [id number] [facility] 15:45:00 15:45:00 LISSY staley o f [facility] 2021-03-09 2021-03-09 Orders Doctor SOLITARIO 1.2.840.114 [id number] 00:00:00 00:00:00 Only Unassigned, NICOLE 350.1.13.10 [place] [facility] 4.2.7.2.686 [id number] [facility] 2021-03-09 2021-03-09 Orders Doctor SOLITARIO 1.2.840.114 [id number] Univers 00:00:00 00:00:00 Only Unassigned, NICOLE 350.1.13.10 ity of [place] [facility] 4.2.7.2.686 [place] as [phone] [address] 2021-02-28 2021-02-28 Office [facility] 1.2.840.114 [id number] Univers 08:17:07 09:05:09 Visit Purvi Jaimes FORMS ANALYSIS MANAGER 350.1.13.[address] [facility] 4.2.7.2.686 [place] as MATERNAL [phone] [facility] ical & CHILD [address] [place] [address] 2021-02-28 2021-02-28 [facility] 1.2.840.114 [id number] 08:17:07 09:05:09 Visit Purvi R FORMS ANALYSIS MANAGER 350.1.13.10 REG[facility]AL 4.2.7.2.686 MATERNAL [phone] & CHILD [address] [place] [address] 2021-02-28 2021-02-28 Outpatient R LISBETH [facility] [id number] Univers 08:15:00 08:15:00 ROSBASHIRNDA ity o f [facility] 2021-02-28 2021-02-28 Orders Doctor SOLITARIO 1.2.840.114 [id number] Univers 00:00:00 00:00:00 Only Unassigned, NICOLE 350.1.13.10 ity of [place] [facility] 4.2.7.2.686 [place] as [phone] [address] 2021-02-28 2021-02-28 Orders Doctor SOLITARIO 1.2.840.114 [id number] 00:00:00 00:00:00 Only Unassigned, NICOLE 350.1.13.10 [place] [facility] 4.2.7.2.686 [id number] 009 2021-02-14 2021-02-14 Office [facility] 1.2.840.114 [id number] Univers 14:34:45 15:51:36 Visit Purvi Jaimes FORMS ANALYSIS MANAGER 350.1.13.10 ity of REG[facility] 4.2.7.2.686 [place] as MATERNAL [phone] Med ical & CHILD [address] [place] [address] 2021-02-14 2021-02-14 [facility] [id number] Univers 14:15:00 14:15:00 TYSHAWNNDA ity o f [facility] 2021-02-14 2021-02-14 Orders Doctor SOLITARIO Quintana.2.840.114 [id number] Univers 00:00:00 00:00:00 Only Unassigned, NICOLE 350.1.13.10 ity of [place] [facility] 4.2.7.2.686 [place] as [phone] [address] 2021-01-25 2021-01-25 Telephone [facility] 1.2.840.114 [id number] Univers 00:00:00 00:00:00 Lissy C FORMS ANALYSIS MANAGER 350.1.13.[address] [facility] 4.2.7.2.686 [place] as MATERNAL [phone] [facility] & [address] 2020-08-30 2020-08-30 Office [facility] [id number] Univers 08:07:36 08:46:48 Visit Lissy C FORMS ANALYSIS MANAGER 350.1.13.[address] [facility] 4.2.7.2.686 [place] as MATERNAL [phone] [address] 2020-08-30 2020-08-30 Outpatient R AKINSIPE, [facility] [id number] Univers 08:15:00 08:15:00 LISSY norwoody o [facility] 2020-08-23 2020-08-23 Outpatient R AKINSIPE, [facility] [id number] Univers 09:45:00 09:45:00 LISSY norwoody o [facility] 2020-08-23 2020-08-23 Outpatient R AKINSIPE, [facility] [id number] Univers 09:45:00 09:45:00 LISSY staley o [facility] 2020-07-09 2020-07-09 Refill [facility] [id number] Univers 00:00:00 00:00:00 Lissy C FORMS ANALYSIS MANAGER 350.1.13.[address] [facility] 4.2.7.2.686 [place] as MATERNAL [phone] [facility] & CHILD [address] [place] [address] 2020-06-26 2020-06-26 Orders Doctor SOLITARIO 1.2.840.114 [id number] Univers 00:00:00 00:00:00 Only Unassigned, NICOLE 350.1.13.10 ity of [place] [facility] 4.2.7.2.686 [place] as [id number] [address] 2020-06-25 2020-06-25 Telephone [facility] [id number] Univers 00:00:00 00:00:00 [facility] 350.1.13.10 it y of [place] 4.2.7.2.686 [place] as Professio [phone] Pa dical nal [address] [place] [address] One 2020-06-24 2020-06-24 Laboratory Lab, Adc Fam Pob I [facility] 1.2. 840.114 [id number] Univers 13:51:37 14:11:37 Only Tae Yung [facility] 350.1.13.10 ity of [place] 4.2.7.2.686 [place] as Professio [phone] Pa dical nal [address] [place] [address] Office [facility] One 2020-06-24 2020-06-24 Outpatient R DENZELRichard [facility] [id number] Univers 14:00:00 14:00:00 TAE [facility] 2020-06-07 2020-06-07 Outpatient R [facility] [id number] Univers 13:30:00 13:30:00 [facility] 2020-05-23 2020-05-30 Office [facility] [id number] Univers 08:24:40 16:10:49 Visit Lissy C FORMS ANALYSIS MANAGER 350.1.13.10 ity [facility] 4.2.7.2.686 [place] as MATERNAL [phone] [facility] & CHILD [address] [place] [address] 2020-05-23 2020-05-23 [facility] [id number] Univers 08:15:00 08:15:00 LISSY ity o f [facility] 2020-05-23 2020-05-23 Outpatient R AKINSIPE, [facility] [id number] Univers 08:15:00 08:15:00 LISSY ity o f [facility] 2020-05-03 2020-05-03 Telephone [facility] 1.2.840.114 [id number] Univers 00:00:00 00:00:00 Lissy C FORMS ANALYSIS MANAGER 350.1.13.[address] [facility] 4.2.7.2.686 [place]ve[place] as MATERNAL [phone] [facility] & CHILD [address] [place] [address] 2020-03-16 2020-03-16 Outpatient R [facility] [id number] Univers 16:00:00 16:00:00 ity [facility] 2020-03-15 2020-03-15 Nurse Visit, Lai Nurse [facility] 1.2 .840.114 [id number] Univers 13:31:32 16:14:24 Visit Lissy Frost FORMS ANALYSIS MANAGER 350.1.13. [address] [facility] 4.2.7.2.686 [place] as MATERNAL [phone] [facility] & CHILD [address] [place] [address] 2020-03-15 2020-03-15 Outpatient R [facility] [id number] Univers 13:30:00 13:30:00 ity of [facility] 2020-01-03 2020-01-03 Telephone LAVONNE Frost 1.2.840.114 [id number] Univers 00:00:00 00:00:00 Lissy C FORMS ANALYSIS MANAGER 350.1.13.[address] [facility] 4.2.7.2.686 [place]ve[place] as MATERNAL [phone] [facility] & CHILD [address] [place] [address] 2019-12-08 2019-12-08 Nurse Visit, Lai Nurse [facility] 1.2 .840.114 [id number] Univers 08:30:13 08:59:06 Visit Lissy Frost FORMS ANALYSIS MANAGER 350.1.13. [address] [facility] 4.2.7.2.686 [place] as MATERNAL [phone] [facility] & CHILD [address] [place] [address] 2019-12-08 2019-12-08 Orders Doctor JEREZ 1.2.840.114 [id number] Univers 00:00:00 00:00:00 Only Unassigned, NICOLE 350.1.13.10 ity of [place] [facility] 4.2.7.2.686 [place] as [phone] [address] 2019-08-02 2019-08-03 Nurse Visit, Lai Nurse [facility] 1.2 .840.114 [id number] Univers 16:19:35 16:01:32 Visit Lissy Frost FORMS ANALYSIS MANAGER 350.1.13. [address] [facility] 4.2.7.2.686 [place] as MATERNAL [phone] Med ical & CHILD [address] [place] [address] Results This patient has no known results.
[2023-04-22 09:22] LABS: Absolute Lymphocytes (CBC) 1.8 K/uL (0.7-4.9); Hematocrit 41.3 % (36.0-45.0); Lymphocytes % 17.5 % (15.3-44.8); MPV 9.4 fL (7.6-11.3)
[2023-04-22 09:34] LABS: Specific Gravity 1.022 (1.005-1.030); Urine Bacteria 20-50 /HPF (<20); Urine Bilirubin NEGATIVE (Negative); Urine Blood Negative (Negative); Urine Clarity Turbid (Clear); Urine Color Yellow (Yellow); Urine Glucose NEGATIVE (Negative); Urine Mucus 1+ /HPF (None Seen); Urine Protein TRACE (Negative); Urine RBC <5 /HPF (None Seen); Urine Urobilinogen Normal (Normal); Urine pH 6.5 (5.0-7.0)
[2023-04-22 09:50] LABS: Albumin 3.1 g/dL (3.4-5.0); Bilirubin Total 0.4 mg/dL (0.2-1.0); Potassium 3.5 mEq/L (3.5-5.1); Protein, Total 6.7 g/dL (6.4-8.2)
--- NOTE | 2023-04-22 10:15 | RAD REPORT ---
EXAM DESCRIPTION: US - Abdomen Exam Limited - 04/22/2023 9:52 am CLINICAL HISTORY: ABD PAIN COMPARISON: Transvaginal OB dated 04/22/2023 TECHNIQUE: Sonographic grayscale and color flow images of the right upper abdominal quadrant were obtained. FINDINGS: The gallbladder demonstrates no gallstones. No pericholecystic fluid or gallbladder wall t hickening. The common bile duct is normal measuring 4 mm. The liver demonstrates no findings of intrahepatic biliary dilatation. IMPRESSION: Normal right upper quadrant ultrasound.
--- NOTE | 2023-04-22 10:25 | RAD REPORT ---
EXAM DESCRIPTION: US - OB Limited - 04/22/2023 10:14 am CLINICAL HISTORY: ABD PAIN COMPARISON: Transvaginal Study Probe dated 02/02/2023 TECHNIQUE: Sonographic grayscale and color flow images of a second -trimester were obtaine d through a transabdominal approach. FINDINGS: A single live intrauterine is identified. Placenta has formed posteriorly. Extensive lacunar spaces along the posterior margin of the placenta with apparent thinning of the posterior myometrium. A somewhat well-circumscribed hypoechoic 2.3 x 2. 4 x 2.5 centimeter lesion is present along the inferior margin of the placenta could represent anothe r venous bettencourt. Amniotic fluid volume is subjectively normal. heart rate: 152 BPM. Femur length: 2.41 cm, corresponding to gestational age and 17 weeks, 1 day. Anechoic thin-walled 1.7 x 1.3 x 1.7 centimeter cyst is again seen in the right ovary, decreased in s ize from 2.6 centimeter in greatest dimension on the prior exam. No free fluid. IMPRESSION: 1. Single live intrauterine . 2. Extensive lacunar spaces along the posterior margin of the placenta with apparent thinning of the posterior myometrium. This is of uncertain significance given the relatively early age of the pregnan cy. The appearance raises concern for placenta accreta in the appropriate clinical setting. Obstetric consultation is recommended. MRI may be helpful for additional characterization. 3. Calculated gestational age: 17 weeks, 1 day, with estimated due date: 09/29/2023. 4. Interval decrease in size of simple appearing cystic lesion of the right ovary, now measuring 1.7 centimeter. The findings were communicated to Caio Gatica on 04/22/2023 at 10:11 hours.
--- NOTE | 2023-04-22 10:41 | ER ---
Nurse's Notes [facility] Name: Mat Mendez Age: 17 yrs Sex: Female : 2005 Arrival Date: 04/22/2023 Time: 08:29 Bed DIS5 Private MD: Diagnosis: UTI/ Urinary tract infection, site not specified Presentation: 04/22 08:41 Chief complaint: Left flank pain and abdominal pain and increased clear vaginal hb discharge x 1 week. Also reports some N/V but not more than her normal. Pt is 17 weeks , MABEL 09/27, , [place]. Coronavirus screen: At this time, the client does not indicate any symptoms associated with coronavirus-19. Ebola Screen: No symptoms or risks identified at this time. Initial Sepsis Screen: Does the patient meet any 2 criteria? No. Patient's initial sepsis screen is negative. Does the patient have a suspected source of infection? No. Patient's initial sepsis screen is negative. Risk Assessment: Do you want to hurt yourself or someone else? Patient reports no desire to harm self or others. Onset of symptoms was April 15, 2023. 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 - Social history:: Smoking status: Patient denies any tobacco usage or history of. Screenin:18 [facility] ED Fall Risk Assessment (Adult) History of falling in the last 3 months, ld1 including since admission No falls in past 3 months (0 pts). Abuse screen: Denies threats or abuse. Denies injuries from another. Nutritional screening: No deficits noted. Tuberculosis screening: No symptoms or risk factors identified. Assessment: 11:17 Reassessment: See triage assessment. Pain: Denies pain. GI: Abdomen is flat, ld1 non-distended, Bowel sounds present X 4 quads. Abd is soft Abdomen is tender to palpation. Vital Signs: 08:41 BP 120 / 87; Pulse 84; Resp 16; Temp 98.1; Pulse Ox 100% on R/A; Weight 69.4 kg; Height hb 5 ft. 6 in. ; Pain 7/10; 08:41 Body Mass Index 24.69 (69.40 kg, 167.64 cm) hb 08:41 Pain Scale: Adult hb ED Course: 08:30 Patient arrived in ED. am2 08:36 Farheen Weathers FNP-C is [facility]. kb 08:36 Caio Gatica MD is Attending Physician. kb 08:44 Triage completed. hb 08:44 Arm band placed on. hb 09:53 US Abdomen Limited In Process Unspecified. EDMS 10:15 OB Limited In Process Unspecified. EDMS 11:18 Patient has correct armband on for positive identification. Placed in gown. Bed in low ld1 position. Call light in reach. Pulse ox on. NIBP on. 11:18 No provider procedures requiring assistance completed. IV discontinued, intact, ld1 bleeding controlled, No redness/swelling at site. Administered Medications: No medications were administered Outcome: 10:40 Discharge ordered by . kb 11:18 Discharged to home ambulatory. ld1 11:18 Condition: stable 11:18 Discharge instructions given to patient, Instructed on discharge instructions, follow up and referral plans. medication usage, Demonstrated understanding of instructions, follow-up care, medications, Prescriptions given X 1. 11:18 Patient left the ED. ld1 Signatures: Dispatcher [employer] EDMT Farheen Weathers FNP-C FNP-Ckb Baxter, Heather, RN RN Carolyn Colunga am2 Nida Ramirez RN RN ld1 Corrections: (The following items were deleted from the chart) 10:15 09:53 In radiology for Transvaginal Ob+US.RAD.BRZ. EDMS EDMS
--- NOTE | 2023-04-22 10:41 | EDPHYS ---
Physician Documentation [facility] Name: Mat Mendez Age: 17 yrs Sex: Female : 2005 Arrival Date: 04/22/2023 Time: 08:29 Bed DIS5 Private MD: ED Physician Caio Gatica HPI: 04/22 10:44 This 17 yrs old Female presents to ER via Ambulatory with complaints of 17 wks kb , Abdominal Pain, Flank Pain. 10:44 The patient presents to the emergency department with abdominal pain. The estimated kb gestational age is 17 weeks. course: care: private OB physician, in [place], Leakage of Fluid: none appreciated, Ultrasound: the patient has not had an ultrasound. Previous pregnancies: the patient has never been . Associated signs and symptoms: Pertinent positives: abdominal pain, Pertinent negatives: dysuria, fever, vaginal bleeding. The patient has not experienced similar symptoms in the past. The patient has not recently seen a physician. Pt reports upper abd pain that radiates down lateral abd on both sides for one week. Denies fever, n/v/d, vaginal bleeding. [facility] ATTENDANT: 10:44 1, 0, Living 0 kb Historical: - Allergies: 08:44 No Known Allergies; hb - Home Meds: 08:44 None [Active]; hb - PMHx: 08:44 None; hb - PSHx: 08:44 None; hb - Immunization history:: Adult Immunizations up to date. - Social history:: Smoking status: Patient denies any tobacco usage or history of. ROS: 10:39 Constitutional: Negative for fever, chills, and weight loss. kb 10:39 Abdomen/GI: Positive for abdominal pain. 10:39 All other systems are negative. Exam: 10:42 Constitutional: This is a well developed, well nourished patient who is awake, alert, kb and in no acute distress. Head/Face: Normocephalic, atraumatic. ENT: Moist Mucous membranes Cardiovascular: Regular rate and rhythm with a normal S1 and S2. No gallops, murmurs, or rubs. No pulse deficits. Respiratory: Respirations even and unlabored. No increased work of breathing. Talking in full sentences Skin: Warm, dry with normal turgor. Normal color. MS/ Extremity: Pulses equal, no cyanosis. Neurovascular intact. Full, normal range of motion. Neuro: Awake and alert, GCS 15, oriented to person, place, time, and situation. Moves all extremities. Normal gait. 10:42 Abdomen/GI: Inspection: abdomen appears normal, Bowel sounds: normal, in all quadrants, Palpation: abdomen is soft and non-tender, in all quadrants. Vital Signs: 08:41 BP 120 / 87; Pulse 84; Resp 16; Temp 98.1; Pulse Ox 100% on R/A; Weight 69.4 kg; Height hb 5 ft. 6 in. ; Pain 7/10; 08:41 Body Mass Index 24.69 (69.40 kg, 167.64 cm) hb 08:41 Pain Scale: Adult hb MDM: 08:47 Patient medically screened. kb 10:41 Data reviewed: vital signs, nurses notes. Management of patient was discussed with the kb following: Dr Gatica, recommends outpatient follow up with OB. 10:43 Differential diagnosis:. kb 10:46 Differential diagnosis: threatened Ab, inevitable Ab, cholelithiasis, uti. Counseling: cali I had a detailed discussion with the patient and/or guardian regarding: the historical points, exam findings, and any diagnostic results supporting the discharge/admit diagnosis, lab results, radiology results, the need for outpatient follow up, an OB/Gyne specialist, to return to the emergency department if symptoms worsen or persist or if there are any questions or concerns that arise at home. ED course: Pt educated on diagnostic results and given printed copy. Educated on importance of OB follow up for US findings today. Verbal understanding received. . 04/22 08:52 Order name: Urinalysis w/ reflexes; Complete Time: 09:41 kb 04/22 08:52 Order name: Abo/rh Typing; Complete Time: 09:41 kb 04/22 08:52 Order name: CBC with Diff; Complete Time: 09:41 kb 04/22 08:52 Order name: Quantitative Hcg; Complete Time: 09:59 kb 04/22 08:52 Order name: CMP; Complete Time: 09:59 kb 04/22 08:52 Order name: Lipase; Complete Time: 09:59 kb 04/22 08:52 Order name: US Abdomen Limited; Complete Time: 10:17 kb 04/22 10:15 Order name: OB Limited; Complete Time: 10:28 EDMS 04/22 08:52 Order name: IV Saline Lock; Complete Time: 09:24 kb 04/22 08:52 Order name: Labs collected and sent; Complete Time: 09:24 kb 04/22 08:52 Order name: NPO; Complete Time: 09:24 kb Administered Medications: No medications were administered Disposition: 17:06 Co-signature as Attending Physician, Caio Gatica MD I reviewed the patient's care rn provided by the Advanced Practice Provider and agree with the diagnosis and treatment plan. Disposition Summary: 04/22/23 10:40 Discharge Ordered Location: Home kb Condition: Stable kb Diagnosis - UTI/ Urinary tract infection, site not specified kb Followup: kb - With: Emergency Department - When: As needed - Reason: Worsening of condition Followup: kb - With: Private Physician - When: 2 - 3 days - Reason: Recheck today's complaints, Continuance of care, Re-evaluation by your physician Discharge Instructions: - Discharge Summary Sheet kb - and Urinary Tract Infection kb Forms: - Medication Reconciliation Form kb - Thank You Letter kb - Antibiotic Education kb - Prescription Opioid Use kb Prescriptions: - Macrobid 100 mg Oral Capsule - take 1 capsule by ORAL route every 12 hours for 10 days; 20 capsule; Refills: kb 0, Product Selection Permitted Signatures: Dispatcher [employer] EDFarheen Santillan, PROJECT DRILLING ENGINEER-C PROJECT DRILLING ENGINEER-Ckb Caio Gatica MD MD rn Baxter, Heather, RN RN Corrections: (The following items were deleted from the chart) 10:15 08:53 Transvaginal Ob+US.RAD.BRZ ordered. EDCT EDMS
[2023-04-22 11:35] VITALS: BP 120/87; TEMP 98.1; O2SAT 100
== END 2023-04-22 11:18 | disposition home or self-care (01) ==
LOC: ER 08:29
DX: O23.42 Unspecified infection of urinary tract in pregnancy, second trimester (principal); Z3A.17 17 weeks gestation of pregnancy
CPT/HCPCS: 36415; 76705; 76815; 80053; 81001; 83690; 84702; 85025; 86900; 86901; 99283